=== PATIENT | male | born 1950 | race Caucasian/White ===

== ENCOUNTER 2020-03-31 07:38 | Observation (INO) ==
--- NOTE | 2020-03-25 11:01 | PAT Medication Instructions ---
Medication Instructions Date of Service March 25, 2020 Home Medications amlodipine 10 mg PO PM ascorbate calcium-bioflavonoid [Mariely-C with Bioflavonoids] 1 tab PO QAM aspirin [Aspir-81] 81 mg PO QAM garlic 1,000 mg PO QAM losartan 100 mg PO QAM vitamin B complex [B-Complex] 1 tab PO QAM STOP taking 2 weeks before surgery garlic 1,000 mg PO QAM DO NOT take the morning of surgery ascorbate calcium-bioflavonoid [Mariely-C with Bioflavonoids] 1 tab PO QAM losartan 100 mg PO QAM vitamin B complex [B-Complex] 1 tab PO QAM Take morning of surgery With a small sip of water, OTHERWISE NOTHING TO EAT OR DRINK AFTER MIDNIGHT: aspirin [Aspir-81] 81 mg PO QAM Take evening before surgery amlodipine 10 mg PO PM Other Notes If you have any questions please call us at [phone] or [phone] or [phone] or [phone]
--- NOTE | 2020-03-28 09:26 | Anesthesiology Consultation ---
Date of Service March 28, 2020 Assessment & Plan (1) Encounter for pre-operative examination: COVID Status: As of 03/28 assessment, patient denies travel to endemic area, known exposure/sick contacts, or symptoms of COVID19. Patient instructed that they and their household members must follow strict social distancing guidelines, wear a mask in public and avoid travel for 14 days prior to surgery. Preoperative COVID19 testing to be completed prior to surgery per surgeon's arra ngements. Patient made aware to self-isolate as much as possible between COVID testing and surgery. Chart Review Chart Review: Acceptable Risk for Surgery (pending surgeon-ordered pcp clearance 03/29, cardio testing faxed for at [facility]) and Patient seen in Pre Admission Testing Teaching & Discussion Instructed NPO after midnight before surgery, except medications with 15 cc of water. Medication instructions provided according to the [facility] guidelines. History Surgery Operation Date: 03/31/20 08:20 Proposed Procedures p Left Total Knee Arthroplasty - Fred Jauregui MD Height/Weight Height: 5 ft 6 in Weight: 74.3 kg Allergies Allergy/AdvReac Type Severity Reaction Status Date / Time Hikftfm-Ebk-Fld Reductase AdvReac Intermediate Joint Pain Verified 03/21/20 07:54 Inhibitor Medications Home Medications Medication Instructions Recorded Confirmed Last Taken amlodipine 10 mg PO PM 03/21/20 03/21/20 Unknown ascorbate calcium-bioflavonoid 1 tab PO QAM 03/21/20 03/21/20 Unknown [Mariely-C with Bioflavonoids] aspirin [Aspir-81] 81 mg PO QAM 03/21/20 03/21/20 Unknown garlic 1,000 mg PO QAM 03/21/20 03/21/20 Unknown losartan 100 mg PO QAM 03/21/20 03/21/20 Unknown vitamin B complex [B-Complex] 1 tab PO QAM 03/21/20 03/21/20 Unknown Past Medical History Medical History Colon cancer JUL 2019> S/P HEMICOLECTOMY; FINISHED CHEMO IN JANUARY 2020; TREATMENT AT [facility] Hypertension Kidney cysts JUST MONITORING Osteoarthritis Sleep apnea cpap Exercise / Class Metabolic Activity II 4-5 Yardwork/Stairs/Walk up hill (Denies CP or SOB with 1 FOS) Past Family History Family History Father Colon cancer Past Surgical History Surgical History History of appendectomy History of arthroscopy CAN'T REMEMBER WHICH KNEE History of colon resection JUL 2019 History of colonoscopy History of tooth extraction History of vascular access device PORT PRESENT TO RIGHT CHEST Hx of fracture of wrist WITH REPAIR TO RIGHT WRIST Past Anesthesia History No Hx of Anesthesia Complications and No Family Hx of Anesthesia Complications History of PONV No Hx of PONV and No Hx of Motion Sickness Social History Smoking Status: Former smoker Do You Dip or Chew Tobacco: No Smoking End Date: 20 YRS Hx Alcohol Use: Yes Alcohol type: beer alcohol intake frequency: a few times a week Hx Substance Use: No substance use type: does not use Review of Systems Pt denies any recent chest pain, shortness of breath, palpitations, cough, fever, URI, or uncontrolled acid reflux. Physical Exam Vital Signs BP: 134/80 P: 62bpm SPO2: 97% RA T: 98.0 F R: 16 ENMT Mouth: + dentures (full upper, partial lower) Thyromental Distance: < 3.5 Finger Breadths (3) Mallampati Class: II Neck + short neck and + facial hair (short mustache only); neck extension not limited Respiratory normal respiratory effort Auscultation: lungs clear to auscultation bilaterally Cardiovascular Rate/Rhythm: regular rate and regular rhythm Heart Sounds: no murmur Vessels: no carotid bruit Extremities: no edema Testing Laboratory Results 03/28/20 09:39 03/28/20 09:39 PT 10.1 Seconds (9.0-12.0) 03/28/20 09:39 INR 1.0 (0.9-1.1) 03/28/20 09:39 APTT 29.0 Seconds (21.0-31.0) 03/28/20 09:39 Hemoglobin A1c 4.8 % (4.5-5.6) 03/28/20 09:39 Urine Color Yellow 03/28/20 09:39 Urine Appearance Clear (Clear) 03/28/20 09:39 Urine pH 5.5 (4.5-7.5) 03/28/20 09:39 Ur Specific [place] 1.025 (1.000-1.030) 03/28/20 09:39 Urine Protein Negative (Negative) 03/28/20 09:39 Urine Glucose (UA) Negative (Negative) 03/28/20 09:39 Urine Ketones Negative (Negative) 03/28/20 09:39 Urine Nitrite Negative (Negative) 03/28/20 09:39 Ur Leukocyte Esterase Negative (Negative) 03/28/20 09:39 Urine RBC 10-30 /hpf (0-4) H 03/28/20 09:39 Urine WBC 0-5 /hpf (0-5) 03/28/20 09:39 Ur Epithelial Cells 0-5 /lpf (0-5) 03/28/20 09:39 Blood Type AB Positive 03/28/20 09:39 Antibody Screen NEGATIVE 03/28/20 09:39 Electrocardiogram Date: 03/28/20 Findings: + NSR @ (62bpm) Chest X-Ray Date: 03/28/20 Findings: + NAD R sided A-port.
[2020-03-28 09:57] LABS: Basophils # (auto) 0.04 K/uL (0-0.2); Basophils % (auto) 0.4 %; Eosinophils % (auto) 1.1 %; Hemoglobin 13.9 g/dL (14.0-18.0); Immature Granulocytes # (auto) 0.03 K/uL (0.00-0.02); Immature Granulocytes % (auto) 0.3 %; Lymphocytes # (auto) 2.16 K/uL (1.2-3.4); Lymphocytes % (auto) 23.7 %; Mean Corpuscular Hgb Conc 33.9 g/dL (32-36); Mean Corpuscular Volume 91.5 fL (80-100); Monocytes % (auto) 7.7 %; Neutrophils # (auto) 6.07 K/uL (1.4-6.5); Neutrophils % (auto) 66.8 %; Platelet Count 244 K/uL (130-400); RDW Coefficient of Variation 12.4 % (11.5-14.5); RDW Standard Deviation 41.7 fL (36.4-46.3); Red Blood Count 4.48 M/uL (4.7-6.1)
[2020-03-28 09:59] LABS: Appearance Urine Clear (Clear); Bilirubin Urine Negative (Negative); Blood Urine 1+ (Negative); Color Urine Yellow; Glucose Urine UA Negative (Negative); Ketones Urine Negative (Negative); Leukocyte Esterase Urine Negative (Negative); Nitrite Urine Negative (Negative); Protein Urine Negative (Negative); Specific Gravity Urine 1.025 (1.000-1.030); Urobilinogen Urine Negative (Negative); pH Urine 5.5 (4.5-7.5)
[2020-03-28 10:06] LABS: Prothrombin Time 10.1 Seconds (9.0-12.0)
--- NOTE | 2020-03-28 10:06 | XRay Report ---
XR chest Pre-admission PA/Lat CLINICAL HISTORY: Preoperative chest COMPARISON STUDY: No previous studies for comparison. FINDINGS: The cardiac and mediastinal contours are normal. There is no evidence of focal pulmonary co nsolidation. There is no evidence of failure. No pleural effusions are visualized.[There is a right-s ided A-Port catheter. There are subsegmental atelectatic changes at both lung bases. IMPRESSION: No active disease in the chest. ACT 112: Negative or not required by law. Electronically signed by: Richi Alcazar M.D. 03/28/2020 10:04 AM
[2020-03-28 10:10] LABS: Epithelial Cell Urine 0-5 /lpf (0-5); Mucus Urine Present (None Prsent); WBC Urine 0-5 /hpf (0-5)
[2020-03-28 10:11] LABS: Bacteria Urine Negative (Negative)
[2020-03-28 11:07] LABS: Estimated Average Glucose 91 mg/dl; Hemoglobin A1C 4.8 % (4.5-5.6)
[2020-03-28 12:50] LABS: Albumin Level 3.8 gm/dl (3.4-5.0); BUN Creatinine Ratio 18.1 (10-20); Calcium 9.1 mg/dl (8.5-10.1); Creatinine Clr Calc Pharmacy 63.9 ml/min; Est GFR (African American) 91.3; Est GFR (Non-African American) 78.8; Potassium 4.9 mmol/L (3.5-5.1)
--- NOTE | 2020-03-28 15:05 | Electrocardiogram Report ---
Test Reason : Blood Pressure : / mmHG Vent. Rate : 062 BPM Atrial Rate : 062 BPM P-R Int : 176 ms QRS Dur : 086 ms QT Int : 438 ms P-R-T Axes : 068 059 041 degrees QTc Int : 444 ms Normal sinus rhythm Normal ECG No previous ECGs available Confirmed by Ho Lopez ([id number]) on 03/28/2020 3:04:58 PM Referred By: Fred Jauregui Confirmed By:Ho Lopez
--- NOTE | 2020-03-30 13:16 | History & Physical Report ---
Date of Service March 30, 2020 Assessment & Plan (1) Primary osteoarthritis of left knee: Admission and Anticipated Discharge Date Admission Date: Treatment options discussed. He has failed conservative measures as above. Risks, benefits and alternatives to surgery including but not limited to infection, DVT, pain, stiffness, need for revision surgery, damage to blood vessels, damage to nerves, PE, , were discussed with the patient and they wish to proceed. Plan will be for left total knee arthroplasty at [facility] on 03/31/20. Will plan on ASA 81mg BID x 1 mo for DVT prophylaxis. Will plan on outpatient PT post discharge from the hospital. All questions answered. F/u post operatively. History of Present Illness Chief Complaint: left knee pain Primary Care Provider: Haley Sorensen MD 69 year old male with PMHx significant for Colon Ca s/p subtotal colectomy, HTN, ALEXX who presents with long standing Left greater than right knee pain. His pain is affecting his ability to carry out daily activities. He has failed conservative measures including cortisone injections and viscoelastic injections. He would like to proceed with left knee replacement. He was diagnosed with colon cancer last year and underwent surgery for this as well as chemotherapy. He has been off chemo for several months. Patient denies headaches, sweats, fevers, chills, double vision, blurred vision, cough, sore throat, dysphagia, chest pain, sob, wheezing, n/v/d/c, numbness, tingling, fatigue, urinary symptoms, mood disorders. ROS positive for bilateral pain and stiffness. Allergies Allergy/AdvReac Type Severity Reaction Status Date / Time Vpzihea-Iwp-Mma Reductase AdvReac Intermediate Joint Pain Verified 03/21/20 07:54 Inhibitor Home Medications Home Medications Medication Instructions Recorded Confirmed Type amlodipine 10 mg PO PM 03/21/20 03/21/20 History ascorbate calcium-bioflavonoid 1 tab PO QAM 03/21/20 03/21/20 History [Mariely-C with Bioflavonoids] aspirin [Aspir-81] 81 mg PO QAM 03/21/20 03/21/20 History garlic 1,000 mg PO QAM 03/21/20 03/21/20 History losartan 100 mg PO QAM 03/21/20 03/21/20 History vitamin B complex [B-Complex] 1 tab PO QAM 03/21/20 03/21/20 History Past Med/Surg History Medical History Colon cancer JUL 2019> S/P HEMICOLECTOMY; FINISHED CHEMO IN JANUARY 2020; TREATMENT AT [facility] Hypertension Kidney cysts JUST MONITORING Osteoarthritis Sleep apnea cpap Surgical History History of appendectomy History of arthroscopy CAN'T REMEMBER WHICH KNEE History of colon resection JUL 2019 History of colonoscopy History of tooth extraction History of vascular access device PORT PRESENT TO RIGHT CHEST Hx of fracture of wrist WITH REPAIR TO RIGHT WRIST Family History Father Colon cancer Social History Smoking Status: Former smoker Smoking End Date: 20 YRS; Second Hand Exposure: Yes; Do You Dip or Chew Tobacco: No; Tobacco Cessation Education Requested by Patient: No Hx Alcohol Use: Yes Alcohol type: beer Hx Substance Use: No Preferred Language: Lithuanian Communication Ability: Effective Dental Laboratory Manager Required: No Beliefs That Will Affect Care: None Current Living Situation: Spouse Other Information That Helps Us Care for You: No Feels Safe at Home: Yes Safety Concerns: Feels Safe At This Time Review of Systems All systems reviewed & are unremarkable except as noted in HPI & below Physical Exam Constitutional: well developed and well nourished; no acute distress Eyes: PERRL, conjunctivae normal, anicteric sclerae ENMT: external ear and nose normal, oropharynx normal Neck: trachea midline, no thyromegaly Respiratory: normal respiratory effort, lungs clear to auscultation Cardiovascular: RRR, no murmur, no edema Musculoskeletal: Left knee: ROM 0-125, mild effusion. Tenderness medially. Stable to valgus and varus stress, positive Mervat's Skin: no rashes, warm and dry Neurologic: patellar DTR's 2+ bilat, sensation intact Psychiatric: A+Ox3, euthymic affect Results & Data ([facility]) Laboratory Results Lab Results 03/28/20 03/28/20 03/28/20 Range/Units 09:39 09:39 09:39 WBC 9.10 (4.8-10.8) K/uL RBC 4.48 L (4.7-6.1) M/uL Hgb 13.9 L (14.0-18.0) g/dL Hct 41.0 L (42-52) % MCV 91.5 (80-100) fL MCH 31.0 (25-34) pg MCHC 33.9 (32-36) g/dL RDW Std Deviation 41.7 (36.4-46.3) fL RDW Coeff of Nely 12.4 (11.5-14.5) % Plt Count 244 (130-400) K/uL MPV 9.0 (7.4-10.4) fL Immature Gran % (Auto) 0.3 % Neut % (Auto) 66.8 % Lymph % (Auto) 23.7 % Cros[place] % (Auto) 7.7 % Eos % (Auto) 1.1 % Baso % (Auto) 0.4 % Neut # (Auto) 6.07 (1.4-6.5) K/uL Lymph # (Auto) 2.16 (1.2-3.4) K/uL Crosby # (Auto) 0.70 H (0.11-0.59) K/uL Eos # (Auto) 0.10 (0-0.5) K/uL Baso # (Auto) 0.04 (0-0.2) K/uL Immature Gran # (Auto) 0.03 H (0.00-0.02) K/uL PT (9.0-12.0) Seconds INR (0.9-1.1) APTT (21.0-31.0) Seconds PTT Ratio Sodium 144 (136-145) mmol/L Potassium 4.9 (3.5-5.1) mmol/L Chloride 113 H (98-107) mmol/L Carbon Dioxide 25 (21-32) mmol/L Anion Gap 6.0 (3-11) BUN 18 (7-18) mg/dl Creatinine 0.97 (0.6-1.4) mg/dl Est Cr Clr Drug Dosing 63.9 ml/min Est GFR ( Amer) 91.3 Est GFR (Non-Af Amer) 78.8 BUN/Creatinine Ratio 18.1 (10-20) Glucose 104 H (70-99) mg/dl Estimat Average Glucose mg/dl Hemoglobin A1c (4.5-5.6) % Calcium 9.1 (8.5-10.1) mg/dl Albumin 3.8 (3.4-5.0) gm/dl Urine Color Yellow Urine Appearance Clear (Clear) Urine pH 5.5 (4.5-7.5) Ur Specific [place] 1.025 (1.000-1.030) Urine Protein Negative (Negative) Urine Glucose (UA) Negative (Negative) Urine Ketones Negative (Negative) Urine Blood 1+ H (Negative) Urine Nitrite Negative (Negative) Urine Bilirubin Negative (Negative) Urine Urobilinogen Negative (Negative) Ur Leukocyte Esterase Negative (Negative) Urine RBC 10-30 H (0-4) /hpf Urine WBC 0-5 (0-5) /hpf Ur Epithelial Cells 0-5 (0-5) /lpf Urine Bacteria Negative (Negative) Urine Mucus Present A (None Prsent) Blood Type Antibody Screen 03/28/20 03/28/20 03/28/20 Range/Units 09:39 09:39 09:39 WBC (4.8-10.8) K/uL RBC (4.7-6.1) M/uL Hgb (14.0-18.0) g/dL Hct (42-52) % MCV (80-100) fL MCH (25-34) pg MCHC (32-36) g/dL RDW Std Deviation (36.4-46.3) fL RDW Coeff of Nely (11.5-14.5) % Plt Count (130-400) K/uL MPV (7.4-10.4) fL Immature Gran % (Auto) % Neut % (Auto) % Lymph % (Auto) % [place] % (Auto) % Eos % (Auto) % Baso % (Auto) % Neut # (Auto) (1.4-6.5) K/uL Lymph # (Auto) (1.2-3.4) K/uL [place] # (Auto) (0.11-0.59) K/uL Eos # (Auto) (0-0.5) K/uL Baso # (Auto) (0-0.2) K/uL Immature Gran # (Auto) (0.00-0.02) K/uL PT 10.1 (9.0-12.0) Seconds INR 1.0 (0.9-1.1) APTT 29.0 (21.0-31.0) Seconds PTT Ratio 1.0 Sodium (136-145) mmol/L Potassium (3.5-5.1) mmol/L Chloride (98-107) mmol/L Carbon Dioxide (21-32) mmol/L Anion Gap (3-11) BUN (7-18) mg/dl Creatinine (0.6-1.4) mg/dl Est Cr Clr Drug Dosing ml/min Est GFR ( Amer) Est GFR (Non-Af Amer) BUN/Creatinine Ratio (10-20) Glucose (70-99) mg/dl Estimat Average Glucose 91 mg/dl Hemoglobin A1c 4.8 (4.5-5.6) % Calcium (8.5-10.1) mg/dl Albumin (3.4-5.0) gm/dl Urine Color Urine Appearance (Clear) Urine pH (4.5-7.5) Ur Specific [place] (1.000-1.030) Urine Protein (Negative) Urine Glucose (UA) (Negative) Urine Ketones (Negative) Urine Blood (Negative) Urine Nitrite (Negative) Urine Bilirubin (Negative) Urine Urobilinogen (Negative) Ur Leukocyte Esterase (Negative) Urine RBC (0-4) /hpf Urine WBC (0-5) /hpf Ur Epithelial Cells (0-5) /lpf Urine Bacteria (Negative) Urine Mucus (None Prsent) Blood Type AB Positive Antibody Screen NEGATIVE Diagnostic Findings Left knee radiographs: Bone on bone medial compartment with osteophyte formation medial femoral condyle and medial tibial plateau.
[~2020-03-31 07:38] MED LIST: ACETAMINOPHEN 500 MG TAB PO SCH; BUPIVACAINE 0.5 % 5 MG/1 ML PF 10ML VIAL ONE; BUPIVACAINE/EPINEPHRINE 0.25% 1:200,000 30 ML VIAL ONE; CEFAZOLIN 1000MG 1,000 MG/7.5 ML SYR IV SCH; CeleBREX 200 MG CAP PO SCH; DEXAMETHASONE SOD INJ 4 MG/ML VIAL ONE; FAMOTIDINE 20 MG TAB PO SCH; GABAPENTIN 300 MG CAP PO SCH; LR 500ML BOLUS, THEN 15ML/HR IV SCH; METOCLOPRAMIDE HCL 10 MG TABLET PO SCH; ROPIVACAINE 0.5% HCL/PF 150 MG, BUPIVACAINE 0.5% MPF 30 ML, EPINEPHrine 30MG/30ML (OR U... INSTIL SCH; TRANEXAMIC ACID 1,000 MG **IV Intra-op IV SCH; TRANEXAMIC ACID 1,000 MG **IV Pre-op IV SCH; dexAMETHasone 4 MG TAB PO SCH
--- NOTE | 2020-03-31 08:01 | History & Physical Bridge Note ---
Date of Service March 31, 2020 History & Physical Bridge Note I have examined the patient, reviewed the History & Physical and in the interval since the performance of the History & Physical I have noted the following changes of clinical significance: no changes noted
[2020-03-31] MEDS ORDERED: MIDAZOLAM HCL 1 MG/ML 2ML VIAL ONE (08:19)
[2020-03-31] MEDS ORDERED: DEXAMETHASONE SOD INJ 4 MG/ML VIAL ONE ×2 (08:20)
[2020-03-31] MEDS ORDERED: PROPOFOL IV EMULSION 10 MG/ML 20 ML VIAL IV ONE ×2 (08:20→10:14)
[2020-03-31] MEDS ORDERED: fentaNYL citrate 100 MCG/2 ML VIAL ONE (08:20)
[2020-03-31] MEDS ORDERED: LIDOCAINE HCL 2% 2 ML VIAL/AMP(20MG/ML) INFIL ONE (08:20)
[2020-03-31] MEDS ORDERED: ONDANSETRON INJ 2 MG/ML 2 ML VIAL ONE (08:20)
[2020-03-31] MEDS ORDERED: BACITRACIN INJ 50,000 UNIT VIAL ONE (08:25)
[2020-03-31] MEDS ORDERED: ORTHO JOINT ANESTHETIC ONE (08:25)
[2020-03-31] MEDS ORDERED: fentaNYL citrate 100 MCG/2 ML VIAL IV PRN (09:46)
[2020-03-31] MEDS ORDERED: ONDANSETRON INJ 2 MG/ML 2 ML VIAL IV PRN ×2 (09:46→12:21)
[2020-03-31] MEDS ORDERED: ATROPINE SULFATE 0.1 MG/ML 10ML SYR IV PRN (09:46)
[2020-03-31] MEDS ORDERED: ePHEDrine sulfate 50 MG/ML AMP IV PRN (09:46)
[2020-03-31] MEDS ORDERED: CEFAZOLIN 250 MG/ML 1 GM VIAL ONE (10:09)
[2020-03-31] MEDS ORDERED: ePHEDrine sulfate 50 MG/ML SYR ONE (10:09)
[2020-03-31] MEDS ORDERED: CEFAZOLIN 1000MG 1,000 MG/7.5 ML SYR IV ONE (10:12)
--- NOTE | 2020-03-31 11:14 | Operative Report ---
Post Operative Report Pre & Post Diagnosis Operation Date: 03/31/20 09:40 Pre-Op Diagnosis: Unilateral Primary Osteoarthritis, Left Knee Post-Op Diagnosis: Unilateral Primary Osteoarthritis, Left Knee I identified the patient and participated in the time-out.: Yes Procedure Operation Date: 03/31/20 09:40 Actual Procedures p Left Total Knee Arthroplasty(Left) - Fred Jauregui MD Surgeon Fred Jauregui MD Finished Stock Inspector Lauri Lanier PA-C Estimated Blood Loss 20 Findings Consistent with Post-Op Diagnosis Specimens Bone and tissue Drains None Anesthesia Type MAC Spinal Regional Complications none Disposition Accompanied Patient To Recovery: No Disposition: Recovery Room Indications Patient is a 69-year-old male osteoarthritic change left knee. He has failed conservative measures including injection, anti-inflammatories, rehab. He wishes to proceed with a left total knee arthroplasty. Description of Procedure Risks benefits and alternatives of surgery including but not limited to infection, DVT, pain, stiffness, need for surgery, damage to blood vessels, damage to nerves or risks of anesthesia were discussed with the patient and they wished to proceed. The patient was identified and the laterality was confirmed and marked. They received a preoperative antibiotic as well as a spinal anesth etic and an abductor canal block. A well-padded tourniquet was applied and then the limb was prepped and draped in standard manner with ChloraPrep. The limb was exsanguinated and the tourniquet was inflated. I made a standard anterior incision. I sharply incised the skin then utilized Bovie electrocautery to achieve hemostasis. I made a medial parapatellar arthrotomy and mobilized the patella laterally. I then excised the anterior horns of the medial and lateral meniscus as well as the infrapatellar fat pad. I elevated a portion of the MCL off of the tibia. I then pinned into place a patient-matched distal femoral cutting guide and made my distal femoral resection. I then pinned into place the 5 in 1 femoral cutting guide. I made my anterior, posterior and chamfer cuts. I then excised the cruciates and the remaining portions of the menisci. I then pinned into place a patient- matched tibial cutting guide and made my tibial resection. I then pinned into place the tibial plate a utilizing alignment robin to confirm rotation. I then cut for the post. Utilizing a lamina hairspring studder and I then removed posterior osteophytes off the femur. I then placed a trial femur into position and cut for the trochlear component. I then sequentially trialed to size the polyethylene until there was good soft tissue balancing and range of motion. I then prepared the patella with a freehand cut utilizing sagittal saw. I sized and drilled for the patella. There was some lateral tracking into the patella. A lateral release was required. There was good patella tracking once this was performed. All the trial components were removed. The deep tissues were anesthetized with an ortho mix solution. Then with Simplex HV with gentamicin cement, I cemented my definitive components. Definitive components, Flores and Nephew [place] 2: Femur 5 Tibia 3 Poly 11 Patella 32 oval A betadine soak was performed. The arthrotomy was closed with interrupted #1 Vicryl suture subcutaneous tissue was closed with interrupted 2-0 Vicryl suture. The skin was closed with with efrem. An Acticoat and Thais dressing were placed. Sterile dressings were applied. All needle and sponge counts were correct at the end of the procedure patient was transferred to the PACU in stable condition without apparent complication. The PA-C was necessary for assistance with procedure for assistance in positioning, prepping, draping, retraction and closure. I attest to the content of the Intraoperative Record and any orders documented therein. Any exceptions are noted below.
--- NOTE | 2020-03-31 11:54 | XRay Report ---
LEFT KNEE 2 VIEWS History: Left total knee arthroplasty. Degenerative arthritis. Postop. FINDINGS: The patient is status post a left total knee arthroplasty. The hardware is intact. No fract ure or dislocation. Skin efrem are in place. IMPRESSION: Left total knee arthroplasty. No evidence for hardware complication. ACT 112: Negative or not required by law. Electronically signed by: Brent Dobson M.D. 03/31/2020 11:52 AM
[2020-03-31] MEDS ORDERED: HYDROmorphone INJ 0.5 MG/0.5 ML SYR IV PRN (12:21)
[2020-03-31] MEDS ORDERED: NALOXONE HCL 0.4 MG/1 ML VIAL/CARP IV PRN (12:21)
[2020-03-31] MEDS ORDERED: MAGNESIUM HYDROXIDE SUSP 30 ML UDC PO PRN (12:21)
[2020-03-31] MEDS ORDERED: bisacodyL 10 MG SUPP PR PRN (12:21)
--- NOTE | 2020-03-31 12:28 | Anesthesiology Progress Note ---
Date of Service March 31, 2020 Anesthesia Post Procedure Vital Signs Vital Signs: Temp Pulse Pulse Resp BP BP Pulse Ox 03/31/20 12:10 36.4 C L 94 H 18 108/65 97 03/31/20 11:55 36.4 C L 88 17 115/69 96 03/31/20 11:45 88 18 115/68 97 03/31/20 11:35 94 H 16 112/67 100 03/31/20 11:29 36 C L 95 H 14 107/65 100 03/31/20 08:34 36.8 C 66 18 130/71 99 Pain Intensity Left Knee: Pain Intensity: 4 Transfer of Care Handoff Completed per policy Notes Mental Status: alert / awake / arousable Patient Amnestic to Procedure: Yes Nausea / Vomiting: adequately controlled Pain: adequately controlled Airway Patency, RR, SpO2: stable & adequate BP & HR: stable & adequate Hydration State: stable & adequate Neuraxial Anesthesia: was administered and sensory block is resolving Anesthetic Complications: no major complications apparent
[2020-03-31] MEDS: ACETAMINOPHEN 500 MG TAB PO SCH ×2 (13:58→21:21)
--- NOTE | 2020-03-31 14:32 | Anesthesiology Progress Note ---
Date of Service March 31, 2020 Anesthesia Post Procedure Vital Signs Vital Signs: Temp Pulse Pulse Resp BP BP Pulse Ox 03/31/20 13:15 36.3 C L 93 H 16 115/70 97 03/31/20 12:37 36.2 C L 91 H 16 118/67 96 03/31/20 12:10 36.4 C L 94 H 18 108/65 97 03/31/20 11:55 36.4 C L 88 17 115/69 96 03/31/20 11:45 88 18 115/68 97 03/31/20 11:35 94 H 16 112/67 100 03/31/20 11:29 36 C L 95 H 14 107/65 100 03/31/20 08:34 36.8 C 66 18 130/71 99 Pain Intensity Left Knee: Pain Intensity: 4 Transfer of Care Handoff Completed per policy Notes Mental Status: alert / awake / arousable Patient Amnestic to Procedure: Yes Nausea / Vomiting: adequately controlled Pain: adequately controlled Airway Patency, RR, SpO2: stable & adequate BP & HR: stable & adequate Hydration State: stable & adequate Neuraxial Anesthesia: was administered and sensory block is resolving Anesthetic Complications: no major complications apparent
[2020-03-31] MEDS ORDERED: PNEUMOCOCCAL Polysaccharide Vaccine 25mcg/0.5mL vial/Syr IM ONE (15:15)
[2020-03-31] MEDS: SODIUM CHLORIDE 0.9% 1000ML 1,000 ML IV SCH (15:25)
[2020-03-31] MEDS: FERROUS GLUCONATE 324 MG TAB PO SCH (17:46)
[2020-03-31] MEDS: CEFAZOLIN 1000MG 1,000 MG/7.5 ML SYR IV SCH (17:46)
[2020-03-31] MEDS ORDERED: SENNA 8.6 MG TAB PO SCH (21:00)
[2020-03-31] MEDS ORDERED: AMLODIPINE BESYLATE 5 MG TAB PO SCH (21:00)
[2020-03-31] MEDS: DOCUSATE SODIUM 100 MG CAP PO SCH (21:41)
[2020-04-01] MEDS: CEFAZOLIN 1000MG 1,000 MG/7.5 ML SYR IV SCH (01:22)
[2020-04-01] MEDS: SODIUM CHLORIDE 0.9% 1000ML 1,000 ML IV SCH (01:22)
[2020-04-01] MEDS: ACETAMINOPHEN 500 MG TAB PO SCH (05:53)
[2020-04-01] MEDS ORDERED: HEPARIN 100 UNIT/ML 5ML FLUSH FLUSH PRN (05:57)
[2020-04-01] MEDS ORDERED: HEPARIN 100 UNIT/ML 5ML FLUSH ONE (05:59)
[2020-04-01 06:17] LABS: Hematocrit (blood only) 31.8 % (42-52); Mean Corpuscular Hemoglobin 31.5 pg (25-34); Mean Corpuscular Hgb Conc 34.6 g/dL (32-36); Mean Corpuscular Volume 91.1 fL (80-100); Mean Platelet Volume 8.9 fL (7.4-10.4); Platelet Count 204 K/uL (130-400); RDW Coefficient of Variation 11.9 % (11.5-14.5); RDW Standard Deviation 39.8 fL (36.4-46.3); Red Blood Count 3.49 M/uL (4.7-6.1); White Blood Count 16.57 K/uL (4.8-10.8)
[2020-04-01 06:46] LABS: BUN Creatinine Ratio 17.9 (10-20); Calcium 8.3 mg/dl (8.5-10.1); Creatinine Clr Calc Pharmacy 59.1 ml/min; Est GFR (Non-African American) 71.6
--- NOTE | 2020-04-01 07:16 | Orthopedic Progress Note ---
Date of Service April 01, 2020 Assessment & Plan (1) Primary osteoarthritis of left knee: POD#1 Left TKA -Pain management -PT/OT -DVT prophylaxis-SCDs, TEDs, ASA 81mg BID -AM labs-hemoglobin at 11 from 13.9 preop, acute blood loss anemia likely due to surgical loss vs dilutional effect -D/C planning-home with HHPT as long as PT goes well today. Admission and Anticipated Discharge Date Admission Date: March 31, 2020 Subjective Patient seen this morning resting in bed. He is comfortable, denies complaints. Really not having much pain this morning. No chest pain, sob, dizziness, n/v/d. Review of Systems Review of Systems: All systems reviewed & are unremarkable except as noted in HPI & below Physical Exam Physical Exam: Left knee dressing is c/d/i, toes are mobile with good dorsiflexion, no calf tenderness. Distally n/v status and sensation intact. Constitutional: well developed and well nourished; no acute distress Results & Data ([facility]) Vital Signs (Past 12 Hours) Vital Signs Temp Pulse Resp BP BP Pulse Ox 04/01/20 03:58 36.9 C 79 16 113/64 96 03/31/20 23:42 37.0 C 84 16 103/59 L 93 03/31/20 19:41 37.0 C 95 H 16 109/60 93 Laboratory Results Lab Results 03/28/20 03/28/20 03/28/20 Range/Units 09:39 09:39 09:39 WBC 9.10 (4.8-10.8) K/uL RBC 4.48 L (4.7-6.1) M/uL Hgb 13.9 L (14.0-18.0) g/dL Hct 41.0 L (42-52) % MCV 91.5 (80-100) fL MCH 31.0 (25-34) pg MCHC 33.9 (32-36) g/dL RDW Std Deviation 41.7 (36.4-46.3) fL RDW Coeff of Nely 12.4 (11.5-14.5) % Plt Count 244 (130-400) K/uL MPV 9.0 (7.4-10.4) fL Immature Gran % (Auto) 0.3 % Neut % (Auto) 66.8 % Lymph % (Auto) 23.7 % Durham % (Auto) 7.7 % Eos % (Auto) 1.1 % Baso % (Auto) 0.4 % Neut # (Auto) 6.07 (1.4-6.5) K/uL Lymph # (Auto) 2.16 (1.2-3.4) K/uL Durham # (Auto) 0.70 H (0.11-0.59) K/uL Eos # (Auto) 0.10 (0-0.5) K/uL Baso # (Auto) 0.04 (0-0.2) K/uL Immature Gran # (Auto) 0.03 H (0.00-0.02) K/uL PT (9.0-12.0) Seconds INR (0.9-1.1) APTT (21.0-31.0) Seconds PTT Ratio Sodium 144 (136-145) mmol/L Potassium 4.9 (3.5-5.1) mmol/L Chloride 113 H (98-107) mmol/L Carbon Dioxide 25 (21-32) mmol/L Anion Gap 6.0 (3-11) BUN 18 (7-18) mg/dl Creatinine 0.97 (0.6-1.4) mg/dl Est Cr Clr Drug Dosing 63.9 ml/min Est GFR ( Amer) 91.3 Est GFR (Non-Af Amer) 78.8 BUN/Creatinine Ratio 18.1 (10-20) Glucose 104 H (70-99) mg/dl Estimat Average Glucose mg/dl Hemoglobin A1c (4.5-5.6) % Calcium 9.1 (8.5-10.1) mg/dl Albumin 3.8 (3.4-5.0) gm/dl Urine Color Yellow Urine Appearance Clear (Clear) Urine pH 5.5 (4.5-7.5) Ur Specific [place] 1.025 (1.000-1.030) Urine Protein Negative (Negative) Urine Glucose (UA) Negative (Negative) Urine Ketones Negative (Negative) Urine Blood 1+ H (Negative) Urine Nitrite Negative (Negative) Urine Bilirubin Negative (Negative) Urine Urobilinogen Negative (Negative) Ur Leukocyte Esterase Negative (Negative) Urine RBC 10-30 H (0-4) /hpf Urine WBC 0-5 (0-5) /hpf Ur Epithelial Cells 0-5 (0-5) /lpf Urine Bacteria Negative (Negative) Urine Mucus Present A (None Prsent) Hepatitis C Ab Screen (Neg) Blood Type Antibody Screen 03/28/20 03/28/20 03/28/20 Range/Units 09:39 09:39 09:39 WBC (4.8-10.8) K/uL RBC (4.7-6.1) M/uL Hgb (14.0-18.0) g/dL Hct (42-52) % MCV (80-100) fL MCH (25-34) pg MCHC (32-36) g/dL RDW Std Deviation (36.4-46.3) fL RDW Coeff of Nely (11.5-14.5) % Plt Count (130-400) K/uL MPV (7.4-10.4) fL Immature Gran % (Auto) % Neut % (Auto) % Lymph % (Auto) % Durham % (Auto) % Eos % (Auto) % Baso % (Auto) % Neut # (Auto) (1.4-6.5) K/uL Lymph # (Auto) (1.2-3.4) K/uL Durham # (Auto) (0.11-0.59) K/uL Eos # (Auto) (0-0.5) K/uL Baso # (Auto) (0-0.2) K/uL Immature Gran # (Auto) (0.00-0.02) K/uL PT 10.1 (9.0-12.0) Seconds INR 1.0 (0.9-1.1) APTT 29.0 (21.0-31.0) Seconds PTT Ratio 1.0 Sodium (136-145) mmol/L Potassium (3.5-5.1) mmol/L Chloride (98-107) mmol/L Carbon Dioxide (21-32) mmol/L Anion Gap (3-11) BUN (7-18) mg/dl Creatinine (0.6-1.4) mg/dl Est Cr Clr Drug Dosing ml/min Est GFR ( Amer) Est GFR (Non-Af Amer) BUN/Creatinine Ratio (10-20) Glucose (70-99) mg/dl Estimat Average Glucose 91 mg/dl Hemoglobin A1c 4.8 (4.5-5.6) % Calcium (8.5-10.1) mg/dl Albumin (3.4-5.0) gm/dl Urine Color Urine Appearance (Clear) Urine pH (4.5-7.5) Ur Specific [place] (1.000-1.030) Urine Protein (Negative) Urine Glucose (UA) (Negative) Urine Ketones (Negative) Urine Blood (Negative) Urine Nitrite (Negative) Urine Bilirubin (Negative) Urine Urobilinogen (Negative) Ur Leukocyte Esterase (Negative) Urine RBC (0-4) /hpf Urine WBC (0-5) /hpf Ur Epithelial Cells (0-5) /lpf Urine Bacteria (Negative) Urine Mucus (None Prsent) Hepatitis C Ab Screen (Neg) Blood Type AB Positive Antibody Screen NEGATIVE 03/31/20 04/01/20 04/01/20 Range/Units 08:26 05:54 05:54 WBC 16.57 H (4.8-10.8) K/uL RBC 3.49 L (4.7-6.1) M/uL Hgb 11.0 L (14.0-18.0) g/dL Hct 31.8 L (42-52) % MCV 91.1 (80-100) fL MCH 31.5 (25-34) pg MCHC 34.6 (32-36) g/dL RDW Std Deviation 39.8 (36.4-46.3) fL RDW Coeff of Nely 11.9 (11.5-14.5) % Plt Count 204 (130-400) K/uL MPV 8.9 (7.4-10.4) fL Immature Gran % (Auto) % Neut % (Auto) % Lymph % (Auto) % [place] % (Auto) % Eos % (Auto) % Baso % (Auto) % Neut # (Auto) (1.4-6.5) K/uL Lymph # (Auto) (1.2-3.4) K/uL [place] # (Auto) (0.11-0.59) K/uL Eos # (Auto) (0-0.5) K/uL Baso # (Auto) (0-0.2) K/uL Immature Gran # (Auto) (0.00-0.02) K/uL PT (9.0-12.0) Seconds INR (0.9-1.1) APTT (21.0-31.0) Seconds PTT Ratio Sodium 143 (136-145) mmol/L Potassium 4.0 (3.5-5.1) mmol/L Chloride 113 H (98-107) mmol/L Carbon Dioxide 21 (21-32) mmol/L Anion Gap 9.0 (3-11) BUN 19 H (7-18) mg/dl Creatinine 1.05 (0.6-1.4) mg/dl Est Cr Clr Drug Dosing 59.1 ml/min Est GFR ( Amer) 83.0 Est GFR (Non-Af Amer) 71.6 BUN/Creatinine Ratio 17.9 (10-20) Glucose 130 H (70-99) mg/dl Estimat Average Glucose mg/dl Hemoglobin A1c (4.5-5.6) % Calcium 8.3 L (8.5-10.1) mg/dl Albumin (3.4-5.0) gm/dl Urine Color Urine Appearance (Clear) Urine pH (4.5-7.5) Ur Specific [place] (1.000-1.030) Urine Protein (Negative) Urine Glucose (UA) (Negative) Urine Ketones (Negative) Urine Blood (Negative) Urine Nitrite (Negative) Urine Bilirubin (Negative) Urine Urobilinogen (Negative) Ur Leukocyte Esterase (Negative) Urine RBC (0-4) /hpf Urine WBC (0-5) /hpf Ur Epithelial Cells (0-5) /lpf Urine Bacteria (Negative) Urine Mucus (None Prsent) Hepatitis C Ab Screen Neg (Neg) Blood Type Antibody Screen
[2020-04-01] MEDS: OXYCODONE HCL IR 5 MG TAB (IMMEDIATE RELEASE) PO PRN ×2 (08:09→12:04)
--- NOTE | 2020-04-01 08:25 | Anesthesiology Progress Note ---
Date of Service April 01, 2020 Anesthesia Post Procedure Vital Signs Vital Signs: Temp Pulse Pulse Resp BP BP Pulse Ox 04/01/20 07:27 36.8 C 69 16 115/66 94 04/01/20 03:58 36.9 C 79 16 113/64 96 03/31/20 23:42 37.0 C 84 16 103/59 L 93 03/31/20 19:41 37.0 C 95 H 16 109/60 93 03/31/20 15:36 36.7 C 91 H 16 107/66 93 03/31/20 13:15 36.3 C L 93 H 16 115/70 97 03/31/20 12:37 36.2 C L 91 H 16 118/67 96 03/31/20 12:10 36.4 C L 94 H 18 108/65 97 03/31/20 11:55 36.4 C L 88 17 115/69 96 03/31/20 11:45 88 18 115/68 97 03/31/20 11:35 94 H 16 112/67 100 03/31/20 11:29 36 C L 95 H 14 107/65 100 03/31/20 08:34 36.8 C 66 18 130/71 99 Pain Intensity Left Knee: Pain Intensity: 2 Notes Mental Status: alert / awake / arousable Nausea / Vomiting: adequately controlled Pain: adequately controlled Airway Patency, RR, SpO2: stable & adequate BP & HR: stable & adequate Hydration State: stable & adequate Neuraxial Anesthesia: was administered and sensory block resolved Anesthetic Complications: no major complications apparent and Pt Satisfied with anesthetic care
[2020-04-01] MEDS: FERROUS GLUCONATE 324 MG TAB PO SCH (08:59)
[2020-04-01] MEDS ORDERED: MULTIVITAMIN TAB PO SCH (09:00)
[2020-04-01] MEDS ORDERED: LOSARTAN POTASSIUM 50 MG TAB PO SCH (09:00)
[2020-04-01] MEDS: DOCUSATE SODIUM 100 MG CAP PO SCH (09:00)
[2020-04-01] MEDS ORDERED: ASPIRIN 81 MG ECTAB PO SCH (09:00)
--- NOTE | 2020-04-03 12:22 | Discharge Summary ---
Date of Service April 03, 2020 Admission HPI Per Admitting Provider 69 year old male with PMHx significant for Colon Ca s/p subtotal colectomy, HTN, ALEXX who presents with long standing Left greater than right knee pain. His pain is affecting his ability to carry out daily activities. He has failed conservative measures including cortisone injections and viscoelastic injections. He would like to proceed with left knee replacement. He was diagnosed with colon cancer last year and underwent surgery for this as well as chemotherapy. He has been off chemo for several months. Patient denies headaches, sweats, fevers, chills, double vision, blurred vision, cough, sore throat, dysphagia, chest pain, sob, wheezing, n/v/d/c, numbness, tingling, fatigue, urinary symptoms, mood disorders. ROS positive for bilateral pain and stiffness. Admission Exam Per Admitting Provider Physical Exam Constitutional: well developed and well nourished; no acute distress Eyes: PERRL, conjunctivae normal, anicteric sclerae ENMT: external ear and nose normal, oropharynx normal Neck: trachea midline, no thyromegaly Respiratory: normal respiratory effort, lungs clear to auscultation Cardiovascular: RRR, no murmur, no edema Musculoskeletal: Left knee: ROM 0-125, mild effusion. Tenderness medially. Stable to valgus and varus stress, positive Mervat's Skin: no rashes, warm and dry Neurologic: patellar DTR's 2+ bilat, sensation intact Psychiatric: A+Ox3, euthymic affect Principal Diagnosis Left knee DJD Discharge Data Allergies Allergy/AdvReac Type Severity Reaction Status Date / Time [id number] Reductase AdvReac Intermediate Joint Pain Verified 03/31/20 08:07 Inhibitor Consultations 03/31/20 12:21 Consult Case Management - Discharge Planning Routine Procedures Performed Operation Date: 03/31/20 09:40 Actual Procedures p Left Total Knee Arthroplasty(Left) - Fred Jauregui MD Ordered Studies 03/31/20 05:00 US - OR guided needle placemen Routine Hospital Course (1) Primary osteoarthritis of left knee: Date of Service April 01, 2020 Assessment & Plan (1) Primary osteoarthritis of left knee: POD#1 Left TKA -Pain management -PT/OT -DVT prophylaxis-SCDs, TEDs, ASA 81mg BID -AM labs-hemoglobin at 11 from 13.9 preop, acute blood loss anemia likely due to surgical loss vs dilutional effect -D/C planning-home with HHPT as long as PT goes well today. Admission and Anticipated Discharge Date Admission Date: March 31, 2020 Subjective Patient seen this morning resting in bed. He is comfortable, denies complaints. Really not having much pain this morning. No chest pain, sob, dizziness, n/v/d. Review of Systems Review of Systems: All systems reviewed & are unremarkable except as noted in HPI & below Physical Exam Physical Exam: Left knee dressing is c/d/i, toes are mobile with good dorsiflexion, no calf tenderness. Distally n/v status and sensation intact. Constitutional: well developed and well nourished; no acute distress Results & Data ([facility]) Vital Signs (Past 12 Hours) Vital Signs Temp Pulse Resp BP BP Pulse Ox 04/01/20 03:58 36.9 C 79 16 113/64 96 03/31/20 23:42 37.0 C 84 16 103/59 L 93 03/31/20 19:41 37.0 C 95 H 16 109/60 93 Laboratory Results Lab Results 03/28/20 03/28/20 03/28/20 Range/Units 09:39 09:39 09:39 WBC 9.10 (4.8-10.8) K/uL RBC 4.48 L (4.7-6.1) M/uL Hgb 13.9 L (14.0-18.0) g/dL Total Time Total Time Spent Total Time Spent (In Minutes): 5 Discharge Plan Discharge Items Patient Disposition: Home - Home Health Services Reason For Visit: LEFT KNEE DJD Discharge Diagnosis: Left knee osteoarthritis Activity: Per Instructions section Non-emergency contact: Surgeon Call non-emergency contact if: you have any medication questions, your pain is not controlled, your pain is unusual for you, your pain is concerning for you, you have a fever, your temperature is above 101, your wound has increased redness, your wound has increased drainage and your wound pain has increased Follow-up/Referrals: Haley Sorensen MD [Primary Care Provider] - Diet: Regular Addtl Attending Provider Instructions: ACTIVITY RECOMMENDATIONS: SELF CARE INSTRUCTIONS AFTER TOTAL KNEE REPLACEMENT A. You may need to continue a physical therapy program after discharge from the hospital. There are several options available to you. Your doctor will assist you in selecting the best one for you. 1. An out-patient facility 2 to 3 times a week for therapy or home therapy. 2. Continue working on all exercises taught to you in the hospital. Your goals should be to increase bending of your knee to 90 degrees and beyond and to fully straighten your knee. B. You may progress at your own pace from walking with a walker or crutches to a cane; then to no assistive devices. C. Make walking a part of your daily routine. Be up as much as comfortable with rest periods throughout the day. Rest with leg elevation is very important. Use the ice wrap frequently for the first 3-4 weeks. D. There are no restrictions on activities. You may ride in a car, shop, participate in strategic planning specialist and all social activities. E. Wear the long elastic stockings (NELSON hose) 20 hours a day for 2 weeks after surgery. They can be removed several times a day for laundering and for a bath. F. You may shower, no tub baths until cleared by your doctor. SPECIAL CARE INSTRUCTIONS: VERY IMPORTANT TO READ AND REVIEW A. There are a few signs you need to watch for after you are home. Call [facility] if you notice any of the followin. Increased severe knee pain. Some pain is expected especially when you exercise. 2. Increased swelling in your leg or knee; pain or swelling of the calf muscle in either lower leg. 3. Any fluid drainage from the incision. 4. Shortness of breath or chest pain. B. Please call [facility] at if you have any concerns or questions about your operation or recovery. The doctor or his nurse will return your call promptly. C. You must take antibiotics before dental work, bladder, bowel or other surger y. Your doctor will provide you with a permanent care to carry describing this precaution. IMPORTANT: * REMEMBER TO TAKE ASPIRIN, 81 MG, TWICE DAILY FOR 4 WEEKS UNLESS OTHERWISE DIRECTED. THIS IS YOUR BLOOD THINNER. * HIGH RISK PATIENTS MAY BE PRESCRIBED A STRONGER BLOOD THINNER. THIS WILL BE PROVIDED AT DISCHARGE. * CALL IF INCREASED PAIN, REDNESS, DRAINAGE OR FEVER GREATER THAT 101. * WEAR NELSON HOSE 20 HOURS PER DAY FOR 2 WEEKS. This is a large adhesive bandage that contains silver ions. This helps your incision heal by fighting off bacteria and protecting it from the outside environment. You are permitted to shower with this dressing. This will remain on your incision for 7 days and then should be removed. Some visible blood or drainage through the dressing window is normal. If there is significant drainage or leaking noted before the 7 days notify your doctor's office immediately. Once removed, keep incision clean and dry. If there is any drainage or redness noted, please call your surgeon. FOLLOW UP VISIT: If appointment is not already scheduled: Please call [facility] to make a follow-up appointment for 2 weeks after your surgery at . Pending Studies at Discharge: No Stand-Alone Forms: My [facility] [employer], Opioid Pain Management, Smoking Cessation Medications and DC Order Prescriptions: New acetaminophen 500 mg Tablet 1,000 mg PO Q8 Qty: 60 RF: 0 oxycodone 5 mg Tablet 5 - 10 mg PO .Q4h-6h MDD 6 PRN (Reason: pain) Qty: 30 RF: 0 celecoxib [Celebrex] 200 mg capsule 200 mg PO BID Qty: 60 RF: 0 aspirin 81 mg Tablet,Delayed Release (Dr/Ec) 81 mg PO BID Qty: 60 RF: 0 Continued garlic 1,000 mg Capsule 1,000 mg PO QAM RF: 0 amlodipine 10 mg Tablet 10 mg PO PM RF: 0 vitamin B complex [B-Complex] Tablet 1 tab PO QAM RF: 0 losartan 100 mg Tablet 100 mg PO QAM RF: 0 Mariely-C with Bioflavonoids 500-200 mg Tablet 1 tab PO QAM RF: 0 Discontinued aspirin [Aspir-81] 81 mg Tablet,Delayed Release (Dr/Ec) 81 mg PO QAM RF: 0 Discharge Orders: Discharge Order (Routine); Ordered 04/01/20 Ordered By: Deacon Diez/Other Patient Handouts: Understanding Knee Replacement, Knee Replacement Total Dc Admission Data Admit Date/Time: 03/31/20 11:35 Attending Provider: Fred Jauregui Admit Provider: Fred Jauregui Primary Care Provider: Haley Sorensen V. Other Interventions: Discharge Summary Assessment (RN) Last Done: 04/01/20 10:36
== END 2020-04-01 12:51 | disposition home health service (06) ==
LOC: ASU 07:38 → 3E 07:38